=== PATIENT | male | born 1990 | race Two or more races ===

== ENCOUNTER 2019-01-04 14:41 | Emergency (ER) | payer SELFPAY ==
[~2019-01-04] VITALS: Ht 180.3 cm; Wt 66.0 kg
[2019-01-04] MEDS ORDERED: LIDOCAINE HCL/PF 1% 10 MG/ML 5ML VIAL IJ ONE (15:45)
[2019-01-04] MEDS ORDERED: BACITRACIN ZINC OINT UDPKT TOP ONE (15:45)
[2019-01-04 16:24] VITALS: BP 138/85
== END 2019-01-05 05:11 | disposition home or self-care (01) ==
LOC: ER 16:48
DX: S61.512A Laceration without foreign body of left wrist, initial encounter (principal); W18.39XA Other fall on same level, initial encounter; Y93.89 Activity, other specified; Y92.89 Other specified places as the place of occurrence of the external cause; Y99.8 Other external cause status; Z88.0 Allergy status to penicillin; Z98.890 Other specified postprocedural states
CPT/HCPCS: 12001; 99283; A4217; J3490; Z7610